=== PATIENT | male | born 2000 | race Caucasian/White ===

== ENCOUNTER 2025-07-03 14:25 | Emergency (ER) | payer OTHER ==
[~2025-07-03] VITALS: Ht 182.9 cm; Wt 87.7 kg
[2025-07-03 14:29] VITALS: TEMP 97.7
--- NOTE | 2025-07-03 14:52 | RADIOLOGY REPORT ---
PROCEDURE: Right elbow radiographs. INDICATION: ELBOW PAIN TECHNIQUE: 3 views of the right elbow were obtained. COMPARISON: None FINDINGS: There is an acute nondisplaced radial head fracture. No dislocation. There is an elbow joint effusion. IMPRESSION: 1. Acute nondisplaced radial head fracture with an elbow joint effusion.
[2025-07-03 15:15] VITALS: BP 154/89; PULSE 70; RESP 16; O2SAT 98
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
== END 2025-07-03 15:30 | disposition home or self-care (01) ==
LOC: ER 14:26
DX: S52.125A Nondisplaced fracture of head of left radius, initial encounter for closed fracture (principal); V29.31XA Electric (assisted) bicycle (driver) (passenger) injured in unspecified nontraffic accident, initial encounter; Y93.89 Activity, other specified; Y92.89 Other specified places as the place of occurrence of the external cause; Y99.8 Other external cause status
CPT/HCPCS: 73080; 99283